=== PATIENT | female | born 1950 | race Caucasian/White ===

== ENCOUNTER 2024-03-13 09:50 | Outpatient (CLI) | payer MEDICAID, MEDICARE ==
[~2024-03-13 09:50] MED LIST: ATE25T PO; DIPH-423 PO; DIVA-81 PO; ESOM20CA PO; FERR256T PO; HYDR50CA PO; LEVA15HF4 IH; LEVO25TA50 PO; LORA1TAB PO; TRAZ-91 PO; TRIA0.2595 PO; [UNRECOGNIZED DRUG - CODE] PO
== END 2024-03-13 23:59 | disposition home or self-care (01) ==
LOC: LAB 09:50
PROVIDERS: ATTEND Nurse Practitioner Psychiatric/Mental Health
DX: I49.8 Other specified cardiac arrhythmias (principal); Z79.899 Other long term (current) drug therapy
CPT/HCPCS: 93005